=== PATIENT | female | born 1980 | race Caucasian/White ===

== ENCOUNTER 2020-03-16 17:13 | Emergency (ER) | payer MEDICAID, SELFPAY ==
[~2020-03-16] VITALS: Ht 154.9 cm; Wt 86.2 kg
[2020-03-16 18:18] VITALS: BP 113/65; Ht 154.9 cm; Wt 86.2 kg
== END 2020-03-16 18:56 | disposition home or self-care (01) ==
LOC: ED 17:13
DX: R06.02 Shortness of breath (principal); R07.89 Other chest pain; R53.1 Weakness; J45.909 Unspecified asthma, uncomplicated; Z88.5 Allergy status to narcotic agent; Z98.890 Other specified postprocedural states
CPT/HCPCS: U0003-CS